=== PATIENT | male | born 1955 | race Caucasian/White ===

== ENCOUNTER 2017-12-31 12:21 | Day surgery (SDC) | payer MEDICARE ==
[~2017-12-31] VITALS: Ht 182.9 cm; Wt 88.6 kg
[2017-12-31] MEDS ORDERED: BALS750C PO (12:58)
[2017-12-31] MEDS ORDERED: LISI10TA4 PO (12:59)
[2017-12-31] MEDS ORDERED: AZAT50TA PO (12:59)
[2017-12-31] MEDS ORDERED: CARV3.12 PO (13:08)
[2017-12-31] MEDS ORDERED: ASPI-611 PO (13:08)
[2017-12-31] MEDS ORDERED: MULT1TAB74 PO (13:09)
[2017-12-31 13:16] VITALS: BP 142/84
[2017-12-31 14:17] VITALS: BP 129/72
[2017-12-31 14:27] VITALS: BP 132/83
== END 2017-12-31 14:35 | disposition home or self-care (01) ==
LOC: GI LAB 12:21
PROVIDERS: ATTEND Internal Medicine Gastroenterology
DX: K51.50 Left sided colitis without complications (principal); K62.4 Stenosis of anus and rectum; I10 Essential (primary) hypertension; Z79.82 Long term (current) use of aspirin; Z79.899 Other long term (current) drug therapy; Z95.5 Presence of coronary angioplasty implant and graft
CPT/HCPCS: 45331; G0500; J7030; A4620